=== PATIENT | female | born 1935 | race Caucasian/White ===

== ENCOUNTER 2018-12-30 08:27 | Outpatient (CLI) | payer OTHER ==
[2018-12-30] MEDS ORDERED: BARIUM SULFATE 135 ML SUSP.RECON (E-Z-HD) PO ONE (09:01)
== END 2018-12-30 21:04 | disposition home or self-care (01) ==
LOC: SRD 08:27
PROVIDERS: ATTEND Otolaryngology
DX: K21.9 Gastro-esophageal reflux disease without esophagitis (principal); K44.9 Diaphragmatic hernia without obstruction or gangrene
CPT/HCPCS: 74220-TC